=== PATIENT | female | born 1965 | race Caucasian/White ===

== ENCOUNTER 2017-03-13 14:59 | Emergency (ER) | payer OTHER | END 2017-03-13 16:13 | disposition home or self-care (01) | LOC: ER 14:59 | DX: R06.1 Stridor (principal); T78.40XA Allergy, unspecified, initial encounter; Z88.2 Allergy status to sulfonamides; Z79.899 Other long term (current) drug therapy; Z79.84 Long term (current) use of oral hypoglycemic drugs; Z79.891 Long term (current) use of opiate analgesic | CPT/HCPCS: 96372; 99282-25; 99283 ==